=== PATIENT | female | born 1985 | race Caucasian/White ===

== ENCOUNTER 2020-05-22 13:18 | Emergency (ER) | payer OTHER, MEDICAID ==
[~2020-05-22] VITALS: Ht 160 cm; Wt 49.9 kg
[~2020-05-22 13:18] MED LIST: ALPRAZOLAM; AMBIEN; AMBIEN 5 MG TABL5 M1 PO; BACTRIM DS TAB1 EACH PO; CARAFATE 1 GM TA1 G1 PO; CELEXA; CELEXA 10 MG TA10 MG PO; CELEXA20 MG PO; CLONAZEPAM 0.50.5 M1 PO; DIFLUCAN150 MG PO; DOXYCYCLINE 10100 MG PO; HYDROCODON-ACE1 EAC7 PO; HYDROCODON-ACE1 EACH PO; HYDROCODONE-AP1 EAC6 PO; K-DUR 20 MEQ T20 MEQ PO; KEFLEX500 M1; KEFLEX500 MG PO; LAMICTAL 25 MG25 M1 PO; LEVAQUIN 500 M500 M2 PO; LEVOTHROID; LEVOTHYROXIN0.075 MG PO; LITHATE5 MG; LORTAB 5-500 T1 EAC1 PO; MACROBID 100 M100 M1 PO; MEDROL DOSPAK21 TAB PO; MEDROLDOSEPACK PO; NAPROSYN500 MG PO; NEURONTIN 300300 M1 PO; NOHOMEMEDICATIONS; NORCO 5-325 TA1 EACH PO; PERCOCET 5-3251 EACH PO; PHENADOZ25 MG RC; PHENERGAN 25 MG25 M1 PO; PHENERGAN 25 MG25 MG PO; PREDNISONE 20 M20 M1 PO; PRILOSEC 20 MG20 MG PO; PROMETHAZINE; PROPYLTHIOURACIL; PROTONIX 20 MG20 MG PO; PYRIDIUM200 MG PO; ROBAXIN500 MG PO; SLEEP MED; TAMSULOSIN HCL0.4 M1 PO; TORADOL 10 MG T10 MG PO; TRAMADOL 50 MG50 MG; TRAMADOL 50 MG50 MG PO; TRAZODONE 150150 M1; TRAZODONE HCL100 MG; TRAZODONE HCL100 MG PO; VEETIDS 500500 MG PO; VICODIN 5-5001 EACH PO; XANAX; XANAX XR1 MG PO; ZANTAC 150MG T150 M1; ZOFRAN ODT4 MG PO; ZOFRAN4 MG PO; ZPAK PO
[2020-05-22] MEDS ORDERED: LEVO-T50 MCG PO (13:31)
[2020-05-22] MEDS ORDERED: RISPERDAL2 MG PO (13:31)
[2020-05-22] MEDS ORDERED: CYMBALTA20 MG PO (13:34)
[2020-05-22 13:45] LABS: HEMATOCRIT 48.2 % (37.0-47.0); HEMOGLOBIN 16.8 gm/dL (12.0-15.0); MCHC 34.9 g/dL (28.0-37.0); MCV 91.8 fL (80.0-100.0); MPV 7.2 fl. (7.2-11.1); NUCLEATED RBCS 0 /100WBC; PLATELET COUNT* 183 thou/uL (150-400); RBC 5.25 mil/uL (4.20-5.00); RDW-CV 12.4 % (10.5-14.5); WBC 13.9 thou/uL (4.0-11.0)
[2020-05-22 13:46] LABS: URINE BILIRUBIN NEGATIVE (Negative); URINE BLOOD 2+ (Negative); URINE CLARITY CLEAR; URINE COLOR ORANGE; URINE GLUCOSE-RANDOM NEGATIVE (Negative); URINE KETONES 2+ (Negative); URINE LEUKOCYTES-REFLEX 1+ (Negative); URINE PROTEIN 2+ (Negative); URINE SPECIFIC GRAVITY 1.025 (1.005-1.030)
[2020-05-22 13:48] LABS: URINE NITRITE-REFLEX POSITIVE (Negative)
[2020-05-22 13:51] LABS: BACTERIA-REFLEX >30 Many /HPF (None Seen); CASTS None Seen /LPF (None Seen); CRYSTALS None Seen /LPF (None Seen); MUCUS None Seen strn/LPF (None Seen); SQUAMOUS 4-10 Moderate /LPF (0-3); URINE WBC-REFLEX >25 Many /HPF (0-5)
[2020-05-22 13:59] LABS: POTASSIUM 4.1 mmol/L (3.5-5.1)
[2020-05-22 14:03] LABS: ALBUMIN 3.5 g/dL (3.4-5.0); TOTAL BILIRUBIN 1.3 mg/dL (<0.1-1.0); TOTAL PROTEIN 8.6 g/dL (6.4-8.2)
[2020-05-22 14:06] LABS: ABSOLUTE LYMPHOCYTES 0.1 thou/uL (0.8-5.3); ABSOLUTE MONOCYTES 0.4 thou/uL (0.0-1.2); ABSOLUTE NEUTROPHILS 13.3 thou/uL (1.6-8.1); PLATELET ESTIMATE ADEQUATE
[2020-05-22] MEDS ORDERED: ZOFRAN ODT4 MG PO (15:39)
[2020-05-22] MEDS ORDERED: NORCO 5-325 TA1 EAC2 PO (15:39)
[2020-05-22] MEDS ORDERED: IBUPROFEN 800800 M1 PO (15:39)
[2020-05-22] MEDS ORDERED: CEFDINIR300 MG PO (15:39)
[2020-05-22 16:16] VITALS: BP 159/107
== END 2020-05-22 16:17 | disposition home or self-care (01) ==
LOC: M.ERS 13:18
PROVIDERS: Nurse Practitioner Family
DX: N12 Tubulo-interstitial nephritis, not specified as acute or chronic (principal); H66.91 Otitis media, unspecified, right ear; E87.1 Hypo-osmolality and hyponatremia; K58.9 Irritable bowel syndrome, unspecified; K21.9 Gastro-esophageal reflux disease without esophagitis; E03.9 Hypothyroidism, unspecified; G89.29 Other chronic pain; F17.210 Nicotine dependence, cigarettes, uncomplicated; Z98.51 Tubal ligation status; Z91.040 Latex allergy status; Z88.8 Allergy status to other drugs, medicaments and biological substances; Z90.49 Acquired absence of other specified parts of digestive tract

== ENCOUNTER 2020-12-23 09:36 | Emergency (ER) | payer OTHER, MEDICAID ==
[~2020-12-23] VITALS: Ht 160 cm; Wt 54.4 kg
[~2020-12-23 09:36] MED LIST changes: +CEFDINIR300 MG PO; +CYMBALTA20 MG PO; +IBUPROFEN 800800 M1 PO; +LEVO-T50 MCG PO; +NORCO 5-325 TA1 EAC2 PO; +RISPERDAL2 MG PO
[2020-12-23] MEDS ORDERED: AMBIEN5 MG PO (09:57)
[2020-12-23] MEDS ORDERED: COMPAZINE25 M1 PO (09:57)
[2020-12-23] MEDS ORDERED: METHOCARBAMOL500 M2 PO (10:46)
[2020-12-23] MEDS ORDERED: MEDROLDOSEPACK PO (10:46)
[2020-12-23 11:31] VITALS: BP 154/72
== END 2020-12-23 11:32 | disposition home or self-care (01) ==
LOC: M.ERS 09:36
DX: M54.12 Radiculopathy, cervical region (principal); K58.9 Irritable bowel syndrome, unspecified; K21.9 Gastro-esophageal reflux disease without esophagitis; E03.9 Hypothyroidism, unspecified; Z98.51 Tubal ligation status; Z90.49 Acquired absence of other specified parts of digestive tract; Z91.040 Latex allergy status; Z88.8 Allergy status to other drugs, medicaments and biological substances; Z85.3 Personal history of malignant neoplasm of breast

== ENCOUNTER 2021-01-22 20:45 | Emergency (ER) | payer OTHER, MEDICAID ==
[~2021-01-22] VITALS: Ht 160 cm; Wt 57.1 kg
[~2021-01-22 20:45] MED LIST changes: +AMBIEN5 MG PO; +COMPAZINE25 M1 PO; +METHOCARBAMOL500 M2 PO
[2021-01-22 20:55] VITALS: BP 158/98
== END 2021-01-22 23:15 | disposition left against medical advice (07) ==
LOC: M.ERS 20:45
DX: Z02.89 Encounter for other administrative examinations (principal)

== ENCOUNTER 2021-02-05 14:11 | Emergency (ER) | payer OTHER, MEDICAID ==
[~2021-02-05] VITALS: Ht 160 cm; Wt 56.7 kg
[2021-02-05 15:29] LABS: ABSOLUTE BASOPHILS 0.1 thou/uL (0.0-0.2); ABSOLUTE LYMPHOCYTES 1.7 thou/uL (0.8-5.3); ABSOLUTE MONOCYTES 1.1 thou/uL (0.0-1.2); ABSOLUTE NEUTROPHILS 10.5 thou/uL (1.6-8.1); BASOPHILS 0.5 %; EOSINOPHILS 0.3 %; HEMATOCRIT 48.4 % (37.0-47.0); HEMOGLOBIN 16.3 gm/dL (12.0-15.0); LYMPHOCYTES 12.8 %; MCH 31.1 pg (26.0-34.0); MCHC 33.7 g/dL (28.0-37.0); MCV 92.2 fL (80.0-100.0); MONOCYTES 7.9 %; MPV 6.9 fl. (7.2-11.1); NUCLEATED RBCS 0 /100WBC; PLATELET COUNT* 246 thou/uL (150-400); POLYS 78.5 %; RBC 5.25 mil/uL (4.20-5.00); RDW-CV 13.1 % (10.5-14.5); WBC 13.3 thou/uL (4.0-11.0)
--- NOTE | 2021-02-05 15:34 | EKG ---
[place] [address] ELECTROCARDIOGRAM REPORT Name: LANCE MCCRARYNE Jonn Room: [facility]#: [id number] Admission: 02/05/21 Attend Phys: Discharge: Date of : 89 Date of Service: 02/05/21 1457 Report #: [id number] THIS REPORT FOR: //name// [facility] ED Test Date: 2021-02-05 Test Time: 14:57:17 Pat Name: LOLI MCCRARY Department: Room: Gender: Income Tax Expert: : 1985 Requested By: Torsten Zabala Order Number: [id number] MD: Sanya Marina Measurements Intervals [place] Rate: 90 P: 54 CA: 148 QRS: 38 QRSD: 84 T: 6 QT: 338 QTc: 414 Interpretive Statements Sinus rhythm artifact noted Probable left atrial enlargement Anterior infarct, old Minimal ST depression, anterolateral leads Compared to ECG 09/17/2014 19:15:14 ST (T wave) deviation now present Myocardial infarct finding still present Electronically Signed On 02-05-2021 15:34:27 CDT by Sanya Marina [email or web address] <ELECTRONICALLY SIGNED> By: Sanya Marina MD, [facility] 02/05/21 1534 1457 1457 Sanya Marina MD, [facility] /EPI
[2021-02-05 15:38] LABS: CALCIUM 9.9 mg/dL (8.5-10.1); CREATININE 0.8 mg/dL (0.6-1.3)
[2021-02-05 15:43] LABS: ALBUMIN 4.3 g/dL (3.4-5.0); TOTAL BILIRUBIN 0.7 mg/dL (<0.1-1.0); TOTAL PROTEIN 7.8 g/dL (6.4-8.2)
[2021-02-05 17:00] LABS: URINE BILIRUBIN NEGATIVE (Negative); URINE BLOOD NEGATIVE (Negative); URINE CLARITY CLEAR; URINE COLOR YELLOW; URINE GLUCOSE-RANDOM NEGATIVE (Negative); URINE KETONES NEGATIVE (Negative); URINE LEUKOCYTES-REFLEX NEGATIVE (Negative); URINE PROTEIN 1+ (Negative); URINE SPECIFIC GRAVITY 1.025 (1.005-1.030)
[2021-02-05 17:01] LABS: URINE NITRITE-REFLEX POSITIVE (Negative)
[2021-02-05 17:07] LABS: SQUAMOUS >10 Many /LPF (0-3); URINE WBC-REFLEX 0-5 Rare /HPF (0-5)
[2021-02-05 17:08] LABS: BACTERIA-REFLEX >30 Many /HPF (None Seen); CASTS None Seen /LPF (None Seen); CRYSTALS None Seen /LPF (None Seen); MUCUS 0-3 Light strn/LPF (None Seen); URINE RBC 3-10 Few /HPF (0-2)
[2021-02-05] MEDS ORDERED: TRANSDERM-SCOP1 EACH TRANSDERM (17:45)
[2021-02-05] MEDS ORDERED: CEPHALEXIN500 MG PO (17:45)
[2021-02-05 18:25] VITALS: BP 164/119
== END 2021-02-05 18:25 | disposition home or self-care (01) ==
LOC: M.ERS 14:11
PROVIDERS: Emergency Medicine Emergency Medical Services
DX: H81.10 Benign paroxysmal vertigo, unspecified ear (principal); I10 Essential (primary) hypertension; N39.0 Urinary tract infection, site not specified; K21.9 Gastro-esophageal reflux disease without esophagitis; E03.9 Hypothyroidism, unspecified; F41.9 Anxiety disorder, unspecified; F17.210 Nicotine dependence, cigarettes, uncomplicated; Z98.51 Tubal ligation status; Z90.49 Acquired absence of other specified parts of digestive tract; Z79.899 Other long term (current) drug therapy; Z88.1 Allergy status to other antibiotic agents; Z91.040 Latex allergy status

== ENCOUNTER 2021-04-14 10:38 | Emergency (ER) | payer OTHER, MEDICAID ==
[~2021-04-14] VITALS: Ht 160 cm; Wt 57.1 kg
[~2021-04-14 10:38] MED LIST changes: +CEPHALEXIN500 MG PO; +TRANSDERM-SCOP1 EACH TRANSDERM
[2021-04-14 12:34] LABS: URINE BILIRUBIN NEGATIVE (Negative); URINE BLOOD NEGATIVE (Negative); URINE CLARITY SL CLOUDY; URINE COLOR YELLOW; URINE GLUCOSE-RANDOM NEGATIVE (Negative); URINE KETONES NEGATIVE (Negative); URINE LEUKOCYTES-REFLEX TRACE (Negative); URINE PROTEIN TRACE (Negative); URINE SPECIFIC GRAVITY >= 1.030 (1.005-1.030); URINE UROBILINOGEN 0.2 E.U./dl (0.2-1.0)
[2021-04-14 12:35] LABS: URINE NITRITE-REFLEX POSITIVE (Negative)
[2021-04-14 12:41] LABS: SQUAMOUS >10 Many /LPF (0-3)
[2021-04-14 12:42] LABS: BACTERIA-REFLEX >30 Many /HPF (None Seen); CASTS None Seen /LPF (None Seen); CRYSTALS None Seen /LPF (None Seen); MUCUS 4-6 Moderate strn/LPF (None Seen); URINE RBC None Seen /HPF (0-2)
[2021-04-14] MEDS ORDERED: HYDROCODON-ACE1 EAC7 PO (14:07)
[2021-04-14] MEDS ORDERED: IBUPROFEN 800800 M1 PO (14:13)
[2021-04-14] MEDS ORDERED: MEDROLDOSEPACK PO (14:13)
[2021-04-14] MEDS ORDERED: MACROBID 100 M100 M2 PO (14:13)
[2021-04-14 14:26] VITALS: BP 155/89
== END 2021-04-14 14:27 | disposition home or self-care (01) ==
LOC: M.ERS 10:38
PROVIDERS: Nurse Practitioner Family
DX: M54.41 Lumbago with sciatica, right side (principal); N39.0 Urinary tract infection, site not specified; M54.2 Cervicalgia; K21.9 Gastro-esophageal reflux disease without esophagitis; E03.9 Hypothyroidism, unspecified; F41.9 Anxiety disorder, unspecified; F31.9 Bipolar disorder, unspecified; F17.210 Nicotine dependence, cigarettes, uncomplicated; Z98.51 Tubal ligation status; Z90.49 Acquired absence of other specified parts of digestive tract; Z90.721 Acquired absence of ovaries, unilateral; Z98.890 Other specified postprocedural states; Z85.89 Personal history of malignant neoplasm of other organs and systems; Z85.43 Personal history of malignant neoplasm of ovary; Z79.899 Other long term (current) drug therapy; Z88.8 Allergy status to other drugs, medicaments and biological substances; Z91.040 Latex allergy status

== ENCOUNTER 2021-04-23 13:32 | Emergency (ER) | payer OTHER, MEDICAID ==
[~2021-04-23] VITALS: Ht 160 cm; Wt 55.8 kg
[~2021-04-23 13:32] MED LIST changes: +MACROBID 100 M100 M2 PO
[2021-04-23] MEDS ORDERED: FLEXERIL PO (15:41)
[2021-04-23] MEDS ORDERED: MEDROLDOSEPACK PO (15:41)
[2021-04-23] MEDS ORDERED: APAP W/CODEINE1 TA2 PO (15:41)
[2021-04-23 17:10] VITALS: BP 167/112
== END 2021-04-23 17:10 | disposition home or self-care (01) ==
LOC: M.ERS 13:32
DX: M54.59 Other low back pain (principal); K21.9 Gastro-esophageal reflux disease without esophagitis; E03.9 Hypothyroidism, unspecified; F41.9 Anxiety disorder, unspecified; F17.210 Nicotine dependence, cigarettes, uncomplicated; Z98.51 Tubal ligation status; Z90.49 Acquired absence of other specified parts of digestive tract; Z79.899 Other long term (current) drug therapy; Z91.040 Latex allergy status